=== PATIENT | female | born 1945 | race Caucasian/White ===

== ENCOUNTER → 2017-04-06 | Day surgery (SDC) | payer OTHER ==
[2017-03-05 13:21] VITALS: Ht 154.9 cm; Wt 84.1 kg
[~2017-04-06] VITALS: Ht 154.9 cm; Wt 84.1 kg
[~2017-04-06] MED LIST: 500ML BSSPLUS 0.5ML EPI1:1000 IRRIG ONE; ACETAMINOPHEN 325 MG TAB PO PRN; ATROPINE SULFATE 0.1 MG/ML 5ML SYR IV PRN; B-COTAB18 PO; BSS FLUSH ONE; BUPIVACAINE HCL 0.75% 10 ML AMP/VIAL ONE; CEFAZOLIN SOD 1 GM VIAL ONE; CRAN1CAP2 PO; DEXAMETHASONE SOD INJ 4 MG/ML VIAL ONE; EpHEDrine SULFATE INJ 50 MG/ML AMP IV PRN; EpINEphrine INJ 1MG/ML AMP 1 MG/ML AMP ONE; HYALURONIDASE HUMAN 150 UNIT/ML INJ ONE; INDOCYANINE GREEN 25 MG/10 ML ONE; LACTATED RINGER'S 1000ML 500 ML IV SCH; LIDOCAINE HCL 2% 2 ML VIAL (20MG/ML) ONE; MIDAZOLAM HCL 1 MG/ML 2ML VIAL ONE; NAPR1TAB9 PO; NEOMYCIN/POLYMYX/DEXAMETH OP OINT PER APP CHARGE ONE; OCUCOAT 1 ML SOLN IO ONE; POVIDONE-IODINE OP SOLN (SURGERY CNTR CHARGING ONLY) ONE; PRLSR20 PO; PRM625 PV; PROPARACAINE 0.5% OP SOLN PER DROP CHARGE OPR SCH; PROPOFOL IV EMULSION 10 MG/ML 20 ML VIAL IV ONE; TIMOLOL MALEATE 0.5% OP SOLN PER DROP CHARGE ONE
[2017-04-06] MEDS: PHENYLEPHRINE HCL 2.5% OP SOLN PER DROP CHARGE OPR SCH ×2 (08:37→08:48)
[2017-04-06] MEDS: TROPICAMIDE 1% OP SOLN PER DROP CHARGE OPR SCH ×2 (08:38→08:49)
--- NOTE | 2017-04-06 09:28 | History & Physical Bridge - SC ---
H&P Re-Evaluation Bridge Note: Pt has epiretinal membrane right eye and is here for vitrectomy right eye . I have examined the patient, reviewed the History & Physical and in the interval since the performance of the History & Physical I have noted the following changes of clinical significance: No changes noted
--- NOTE | 2017-04-06 10:28 | [facility] Operative Report ---
Operative Report Date of Service Apr 06, 2017. Operative Report PREOPERATIVE DIAGNOSIS: Epiretinal membrane, right eye. ICD10: H35.371 POSTOPERATIVE DIAGNOSIS: same. PROCEDURE: 1. Pars plana vitrectomy, 23 gauge. 2. Membrane peeling of the internal limiting membrane and overlying epiretinal membrane. All to the right eye. CPT CODE: 88085 SURGEON: Chalino Argueta D.O. COMPLICATIONS: None. ESTIMATED BLOOD LOSS: None. SPECIMENS: None. ANESTHESIA: Retrobulbar block and MAC. INDICATIONS FOR PROCEDURE: The patient has an epiretinal membrane that is visually significant. Vitrectomy surgery is indicated to decrease risk of vision loss and potentially improve vision. CONSENT: The risks, benefits and alternatives were discussed with the patient including but not limited to decreased visual acuity, failure to achieve desired results, loss of the eye, infection, pain, glaucoma, lens changes, retinal tears, retinal detachment, the need for more procedures, drooping of the eyelid, blindness, and double vision. The patient is aware of risks and consents to the surgery. Consent is signed and on the chart. OPERATION AND FINDINGS: The patient was brought to the operating room where the patient was identified by name, date, and medical record number. The surgical site was confirmed with the informed written consent. The patient was sedated by the anesthesiology team after which a 50:50 mixture of 2% lidocaine and 0.75% bupivacaine with hyaluronidase was administered in a standard retrobulbar fashion. A total of 4 ml was administered without difficulty. The patient was then prepped and draped in the usual sterile manner for retinal surgery. A wire lid speculum was placed and an Allen 23-gauge trocar cannula system was employed. The inferior temporal trocar cannula was first placed in an angled fashion 3.75mm posterior to the surgical limbus and the infusion cannula was inserted into this cannula after which the intravitreal position was verified prior to turning the infusion on. Two more trocar cannulas were then inserted in an angled fashion, one in the superior temporal, and one in the superior nasal quadrant both 3.75mm posterior to the surgical limbus. A light pipe and vitrector were then introduced into the eye and the BIOM wide angle viewing system was brought into place. Standard core vitrectomy was performed the vitreous was insured to be totally detached from the posterior pole with the aid of the vitrector. Next 0.05ml of indocyanine green was placed over the macular surface to stain the internal limiting membrane. This was washed from the eye after 10 seconds. At this point a flat contact lens was placed on the surface of the eye and a flex scraper and ILM forceps were used to gently peel the internal limiting membrane and overlying epiretinal membrane off of the macular surface without difficulty. At this point scleral depression was performed for 360 degrees and no retinal tears or detachments were noted. The trocar cannulas were then removed and found to be water tight. The intraocular pressure was found to be within normal limits by palpation and subconjunctival injections of Kefzol and dexamethasone were administered inferiorly and superiorly. The wire lid speculum was removed. Maxitrol was applied to the surface of the eye. A light patch and shield were taped over the surface of the eye and the patient left the Operating Room in stable condition having tolerated the procedure well. DISPOSITION: The patient has an appointment the following morning in the Ophthalmology Clinic. The patient is to call immediately if there are any problems overnight. I attest to the content of the Intraoperative Record and any orders documented therein. Any exceptions are noted below.
--- NOTE | 2017-04-06 10:29 | Discharge Instructions-SurgCtr ---
Discharge Instructions Date of Service Apr 06, 2017. Visit Reason for Visit: Right Eye Epiretinal Membrane Discharge Discharge Diagnosis / Problem: same Discharge Goals Goal(s): Improve function Medications Stopped Medications Name(s): dorothy stopped for 3 days Activity Recommendations Activity Limitations: per Instructions/Follow-up section Anesthesia . Post Anesthesia Instructions: If you have had General Anesthesia or IV Sedation: * Do not drive today. * Resume driving when surgeon permits. * Do not make important decisions or sign legal documents today. * Call surgeon for: 1. Temperature elevations greater than 101 degrees F. 2. Uncontrollable pain. 3. Excessive bleeding. 4. Persistent nausea and vomiting. 5. Medication intolerance (nausea, vomiting or rash). * For nausea and vomiting use only clear liquids such as: tea, soda, bouillon until nausea subsides, then gradually increase diet as tolerated. * If you have any concerns or questions, call your surgeon's office. If physician is unavailable and it is an emergency, call 911 or go to the nearest emergency room. . Instructions / Follow-Up Instructions / Follow-Up * May take Tylenol if needed for discomfort. * Do NOT remove eye shield. * NO straining, heavy lifting (>15 pounds) or bending below waist. * Avoid getting water or soap directly into operative eye. * Do NOT rub eye. If you experience increasing eye pain not relieved by medication, please contact us immediately at [phone]. If you are unable to reach someone at the above number, call [phone] and ask to speak with the EYE DOCTOR AGILE PROJECT MANAGER. Inform them that you are a Dr. Argueta patient who had recent surgery. Diet Recommendations Home Diet: resume previous diet Procedures Procedures Performed: Right Eye Vitrectomy 23 Gauge, Epiretinal Membrane Pending Studies Studies pending at discharge: no Medical Emergencies . Who to Call and When: Medical Emergencies: If at any time you feel your situation is an emergency, please call 911 immediately. . Non-Emergent Contact Non-Emergency issues call your: [place] [employer] . . "Provider Documentation" section prepared by Chalino Argueta. .
--- NOTE | 2017-04-06 10:58 | Anesthesia Progress Nt - [facility] ---
Anesthesia Post Op Note Date & Time Apr 06, 2017 at 10:58 Vital Signs Pain Intensity: 4 Vital Signs Past 12 Hours Date Time Temp Pulse Resp B/P (MAP) Pulse Ox O2 Delivery O2 Flow Rate FiO2 04/06/17 10:49 36.6 67 16 148/67 (94) 96 Room Air 04/06/17 08:25 36.7 71 16 143/84 (103) 97 Room Air Notes Mental Status: alert / awake / arousable, participated in evaluation Pt Amnestic to Procedure: Yes Nausea / Vomiting: adequately controlled Pain: adequately controlled Airway Patency, RR, SpO2: stable & adequate BP & HR: stable & adequate Hydration State: stable & adequate Anesthetic Complications: no major complications apparent
[2017-04-06 11:01] VITALS: BP 134/74; PULSE 73; TEMP 36.6; O2SAT 98
== END | disposition home or self-care (01) ==
LOC: X.SURG 08:07
PROVIDERS: ATTEND Ophthalmology
DX: H35.371 Puckering of macula, right eye (principal); E66.9 Obesity, unspecified; Z68.35 Body mass index [BMI] 35.0-35.9, adult

== ENCOUNTER → 2017-07-14 | Outpatient (CLI) | payer OTHER ==
[~2017-07-14] MED LIST changes: -500ML BSSPLUS 0.5ML EPI1:1000 IRRIG ONE; -ACETAMINOPHEN 325 MG TAB PO PRN; -ATROPINE SULFATE 0.1 MG/ML 5ML SYR IV PRN; -BSS FLUSH ONE; -BUPIVACAINE HCL 0.75% 10 ML AMP/VIAL ONE; -CEFAZOLIN SOD 1 GM VIAL ONE; -DEXAMETHASONE SOD INJ 4 MG/ML VIAL ONE; -EpHEDrine SULFATE INJ 50 MG/ML AMP IV PRN; -EpINEphrine INJ 1MG/ML AMP 1 MG/ML AMP ONE; -HYALURONIDASE HUMAN 150 UNIT/ML INJ ONE; -INDOCYANINE GREEN 25 MG/10 ML ONE; -LACTATED RINGER'S 1000ML 500 ML IV SCH; -LIDOCAINE HCL 2% 2 ML VIAL (20MG/ML) ONE; -MIDAZOLAM HCL 1 MG/ML 2ML VIAL ONE; -NEOMYCIN/POLYMYX/DEXAMETH OP OINT PER APP CHARGE ONE; -OCUCOAT 1 ML SOLN IO ONE; -POVIDONE-IODINE OP SOLN (SURGERY CNTR CHARGING ONLY) ONE; -PROPARACAINE 0.5% OP SOLN PER DROP CHARGE OPR SCH; -PROPOFOL IV EMULSION 10 MG/ML 20 ML VIAL IV ONE; -TIMOLOL MALEATE 0.5% OP SOLN PER DROP CHARGE ONE
--- NOTE | 2017-07-16 09:22 | MAMMOGRAPHY REPORT ---
BILATERAL DIGITAL SCREENING MAMMOGRAM TOMOSYNTHESIS WITH CAD: 07/14/2017 CLINICAL HISTORY: Routine screening. Patient has no complaints. TECHNIQUE: Breast tomosynthesis in addition to standard 2D mammography was performed. Current study was also evaluated with a Computer Aided Detection (CAD) system. COMPARISON: Comparison is made to exams dated: 06/05/2016 mammogram, 05/28/2015 mammogram, 05/25/2014 mammogram, 05/02/2013 mammogram, 04/05/2012 mammogram, and 04/02/2011 mammogram - [facility]. BREAST COMPOSITION: There are scattered areas of fibroglandular density in both breasts. FINDINGS: The exam is suboptimal due to inability of the patient to allow adequate positioning for th e exam, particularly MLO views. Within this limitation, there is stable asymmetry in the lateral pos terior left breast and medial right breast. No new suspicious mass, architectural distortion or clus ter of microcalcifications is seen. IMPRESSION: ACR BI-RADS CATEGORY 1: NEGATIVE There is no mammographic evidence of malignancy, within the limitations of the exam. A 1 year screeni ng mammogram is recommended. The patient will receive written notification of the results. Approximately 10% of breast cancers are not detected with mammography. A negative mammographic report should not delay biopsy if a clinically suggestive mass is present. Maren Keller M.D. ay/:07/14/2017 16:38:12 Mail Room Clerk: Deepika SALINAS)(Zaira), [facility] letter sent: Normal 1/2 BI-RADS Code: ACR BI-RADS Category 1: Negative
== END | disposition home or self-care (01) ==
LOC: C.MAMM 13:57
PROVIDERS: ATTEND Obstetrics & Gynecology
DX: Z12.31 Encounter for screening mammogram for malignant neoplasm of breast (principal)

== ENCOUNTER 2023-02-20 21:52 | Observation (INO) ==
[2023-02-20 22:46] LABS: Basophils # (auto) 0.03 K/uL (0-0.2); Basophils % (auto) 0.4 %; Eosinophils # (auto) 0.08 K/uL (0-0.50); Eosinophils % (auto) 0.9 %; Hemoglobin 11.5 g/dl (12.0-16.0); Immature Granulocytes # (auto) 0.01 K/uL (0.01-0.20); Immature Granulocytes % (auto) 0.1 %; Lymphocytes # (auto) 1.15 K/uL (1.2-3.4); Lymphocytes % (auto) 13.5 %; Mean Corpuscular Hemoglobin 31.1 pg (25.0-34.0); Mean Corpuscular Hgb Conc 32.9 g/dL (32.0-36.0); Mean Corpuscular Volume 94.6 fL (80.0-100.0); Mean Platelet Volume 9.5 fL (9.4-12.4); Monocytes # (auto) 0.51 K/uL (0.11-0.59); Neutrophils # (auto) 6.74 K/uL (1.40-6.50); Neutrophils % (auto) 79.1 %; Platelet Count 218 K/uL (130-400); RDW Coefficient of Variation 12.7 % (11.5-14.5); RDW Standard Deviation 44.4 fL (36.4-46.3); White Blood Count 8.52 K/ul (4.8-10.8)
[2023-02-20 22:50] LABS: Appearance Urine Cloudy (Clear); Bacteria Urine Automated 1+ (Negative); Bilirubin Urine Negative (Negative); Blood Urine Negative (Negative); Color Urine Dark Yellow; Epithelial Cell Urine Auto >30 /lpf (0-5); Glucose Urine UA Negative (Negative); Ketones Urine Trace (Negative); Leukocyte Esterase Urine Negative (Negative); Nitrite Urine Negative (Negative); Protein Urine Negative (Negative); Specific Gravity Urine 1.032 (1.000-1.030); Urobilinogen Urine Negative (Negative)
[2023-02-20 23:13] LABS: Albumin Level 4.1 gm/dl (3.4-5.0); Bilirubin,Total 0.9 mg/dl (0.2-1.0); Potassium 4.1 mmol/L (3.5-5.1)
[2023-02-20 23:20] LABS: Albumin Globulin Ratio 1.4 (0.9-2); BUN Creatinine Ratio 54.9 (10-20); Creatinine Clr Calc Pharmacy 91.2 ml/min; Est GFR (African American) 108.3 ml/min; Est GFR (Non-African American) 93.4 ml/min; Total Protein 7.1 gm/dl (6.0-8.3)
[2023-02-20 23:22] LABS: Troponin I High Sensitivity 4.1 pg/ml (0-14)
[2023-02-21] MEDS ORDERED: SODIUM CHLORIDE 0.9% 1000ML 500 ML IV ONE (00:40)
--- NOTE | 2023-02-21 00:40 | Emergency Department Note ---
Impression & Plan Acute cholecystitis, Abdominal pain, SOB (shortness of breath) ED Provider Note INFORMANT: Patient ED PROVIDER(S): Jesus Manuel De Guzman MD CHIEF COMPLAINT: Abdominal pain PLAN: Disposition: Admitted Condition: Good Outpatient prescription management: none Referral: None MEDICAL DECISION MAKING: Patient presented because of abdominal pain. At the peak of the pain she was short of breath. She had an unremarkable ECG. Patient's abdominal examination was concerning due to right upper quadrant pain. Patient still has her gallbladder. She was ordered hydration and Zofran. Her nausea resolved before the Zofran and patient declined. She declined analgesia. The patient underwent CT imaging and on my interpretation there was concerns for cholecystitis. I did perform a limited bedside ultrasound and this did reveal some wall thickening concerns. I put her in for formal ultrasound. There was a delay in receiving the stat rad radiology reading and I did satnam the study as urgent. Patient was given IV Mefoxin. The CT report did come back consistent with acute chol ecystitis. I did discuss the need for ultrasound with the service desk technician. Patient will need further management in the hospital. Given her age patient will be evaluated for admission by internal medicine with surgical consultation. Consultation was made with Dr. Austen Damon of the [facility] service. Patient was evaluated in the ER for further management. Discussed with coating manager After review of the information above and other included data, I feel the patien t requires admission. Triage Nursing notes reviewed and agree them. Vital Signs: reviewed and remarkable for no significant abnormalities Prior /Outside records reviewed: none Differential diagnosis: Etiologies such as gastroenteritis, food borne illness, infections, a ppendicitis, diverticulitis, inflammatory bowel disease, GI bleed, biliary pathology, as well as others were entertained. Diagnostics, as interpreted by me: ECG: Twelve-lead ECG reveals a normal sinus rhythm at 65 bpm. Poor R wave progression. No ST elevation or depression. No TWI. Cardiac Monitoring: Cardiac monitoring ordered by me: The patient was placed on continuous cardiac monitoring and observed. It revealed a normal sinus rhythm at 70 beats per minute without ectopy or evidence of dysrhythmia. Medical decision rules: none Imaging studies: CT scan as noted above. Consistent with acute cholecystitis. HPI: The patient is a 77 year old female who presents to the Emergency Room with complaints of abdominal pain. This started this afternoon and is persisting. The patient also notes the following associated symptoms, nausea, vomiting, SOB. The patient has taken no medication for relieving factors. Current pain is rated as 8/10. Pt notes right abd pain a few nights ago. Pt denies LOC, headache, fevers, chills, diaphoresis, visual changes, neck pain, chest pain, breathing difficulties, back pain, melena, hematochezia, urinary symptoms, numbness, weakness, lymphadenopathy, rash, or other complaints. PAST MEDICAL HISTORY: See Below, Dm PAST SURGICAL HISTORY: See Below, appy SOCIAL HISTORY: See Below, HOME MEDICATIONS: See Below ALLERGIES: See Below VITALS: See Below PHYSICAL EXAMINATION: GENERAL: Awake, alert, uncomfortable-appearing, in no distress HENT: Normocephalic, atraumatic. Oropharynx unremarkable. EYES: Normal conjunctiva. Sclera non-icteric. NECK: Inspection normal. Non-tender. Supple. No nuchal rigidity. FROM. No masses. RESPIRATORY: Clear to auscultation. No wheezes. No rales. Normal respiratory effort. CARDIAC: Normal rate. Normal rhythm. No murmurs. No rubs. Extremities warm and well perfused. Pulses equal. No JVD. GI: Soft, non-distended. RUQ tenderness to palpation. No rebound or guarding. No masses. RECTAL: Deferred. MUSCULOSKELETAL: Atraumatic. Chest examination reveals no tenderness. The back is symmetrical on inspection without obvious abnormality. There is no CVA tenderness to palpation. No joint edema. LOWER EXTREMITIES: Calves are equal size bilaterally and non-tender. No edema. No discoloration. NEURO: Normal sensorium. No sensory or motor deficits noted. SKIN: No rash or jaundice noted. Past Med/Surg History Medical History (Updated 02/21/23 @ 06:03 by Jesus Manuel De Guzman MD) Basal cell carcinoma Dermatofibroma Encounter for well woman exam with routine gynecological exam H/O bone density study 2013 H/O uterine leiomyoma Microscopic hematuria Prolapse of vaginal nazario Uterine prolapse Surgical History (Updated 03/27/19 @ 13:11 by Deborah Rios) H/O colonoscopy 2008-repeat in ten years H/O wisdom tooth extraction History of appendectomy History of cataract surgery History of dilation and curettage History of tubal ligation Family History (Updated 03/27/19 @ 13:13 by Deborah Rios) Mother Aortic aneurysm Father Aortic aneurysm Lung cancer Prostate cancer Bladder cancer Brother Aortic aneurysm Lung cancer Denies family history of Ovarian cancer Breast cancer Colorectal cancer Social History (Updated 12/14/19 @ 09:55 by Bridgett Johns) Smoking Status: Never smoker Do You Dip or Chew Tobacco: No; Hx Alcohol Use: No Hx Substance Use: No Preferred Language: Vietnamese Feels Safe at Home: Yes Dental Care, Regularly: Yes Allergies Allergies Allergy/AdvReac Type Severity Reaction Status Date / Time No Known Drug Allergies Allergy Verified 10/15/22 13:37 Home Meds Home Medications Medication Instructions Recorded Confirmed atorvastatin 80 mg tablet PO 03/27/19 10/15/22 clotrimazole-betamethasone 1 1 appln topical .Apply to rash in 03/27/19 10/15/22 %-0.05 % topical cream fol #1 g fluocinonide 0.05 % topical 1 appln topical .APPLY SPARINGLY 03/27/19 10/15/22 ointment TO A #1 g miconazole nitrate 2 % topical topical .aplly to inguinal fo #1 g 03/27/19 10/15/22 powder naproxen sodium 550 mg tablet PO 03/27/19 10/15/22 omeprazole 20 mg capsule,delayed PO 03/27/19 10/15/22 release trazodone 50 mg tablet 50 mg PO DAILY 03/21/20 10/15/22 lisinopril 20 mg tablet 20 mg PO DAILY 07/09/20 10/15/22 oxybutynin chloride 5 mg tablet 5 mg PO DAILY 10/16/20 10/15/22 escitalopram oxalate 10 mg tablet 10 mg PO DAILY 04/30/21 10/15/22 (Lexapro) Previous Rx's Medication Instructions Recorded conjugated estrogens 0.625 mg/gram 0.625 mg vaginal 2XWK #30 grams 10/15/22 vaginal cream Results & Data (ED) Vital Signs Vital Signs - 24 hr 02/20/23 21:54 02/21/23 01:42 02/21/23 03:00 Temperature 36.4 C L Temperature Source Temporal Artery Scan Pulse Rate 77 Pulse Rate [Finger] 66 Respiratory Rate 16 18 Blood Pressure 166/77 H Blood Pressure [Right Arm] 144/66 H Blood Pressure Mean 106 Blood Pressure Mean [Right Arm] 92 Blood Pressure Position Sitting Pulse Oximetry 98 100 Oxygen Delivery Method Room Air Room Air Room Air Sepsis Recent Fever Within 48 Hours No Sepsis New/Unexplained Change in Mental Status No Sepsis Action Taken by Nursing No Action Required 02/21/23 00:13 02/21/23 04:15 02/21/23 04:30 Temperature Temperature Source Pulse Rate 62 60 Pulse Rate [Finger] 70 Respiratory Rate 18 Blood Pressure Blood Pressure [Right Arm] 123/61 Blood Pressure Mean Blood Pressure Mean [Right Arm] 81 Blood Pressure Position Pulse Oximetry 98 Oxygen Delivery Method Room Air Sepsis Recent Fever Within 48 Hours Sepsis New/Unexplained Change in Mental Status Sepsis Action Taken by Nursing Laboratory Data 02/20/23 22:20 02/20/23 22:20 Lab Results 02/20/23 02/20/23 02/20/23 Range/Units 22:20 22:20 22:20 WBC 8.52 (4.8-10.8) K/ul RBC 3.70 L (4.20-5.40) M/uL Hgb 11.5 L (12.0-16.0) g/dl Hct 35.0 L (37.0-47.0) % MCV 94.6 (80.0-100.0) fL MCH 31.1 (25.0-34.0) pg MCHC 32.9 (32.0-36.0) g/dL RDW Std Deviation 44.4 (36.4-46.3) fL RDW Coeff of Haroldo 12.7 (11.5-14.5) % Plt Count 218 (130-400) K/uL MPV 9.5 (9.4-12.4) fL Immature Gran % (Auto) 0.1 % Neut % (Auto) 79.1 % Lymph % (Auto) 13.5 % [place] % (Auto) 6.0 % Eos % (Auto) 0.9 % Baso % (Auto) 0.4 % Neut # (Auto) 6.74 H (1.40-6.50) K/uL Lymph # (Auto) 1.15 L (1.2-3.4) K/uL [place] # (Auto) 0.51 (0.11-0.59) K/uL Eos # (Auto) 0.08 (0-0.50) K/uL Baso # (Auto) 0.03 (0-0.2) K/uL Immature Gran # (Auto) 0.01 (0.01-0.20) K/uL Sodium 139 (136-145) mmol/L Potassium 4.1 (3.5-5.1) mmol/L Chloride 107 (98-107) mmol/L Carbon Dioxide 24 (21-32) mmol/L Anion Gap 8 (3-11) BUN 28 H (6-23) mg/dl Creatinine 0.51 L (0.6-1.2) mg/dl Est Cr Clr Drug Dosing 91.2 ml/min Est GFR ( Amer) 108.3 ml/min Est GFR (Non-Af Amer) 93.4 ml/min BUN/Creatinine Ratio 54.9 H (10-20) Glucose 137 H (70-99(Fasting)) mg/dl Calcium 9.0 (8.6-10.3) mg/dl Total Bilirubin 0.9 (0.2-1.0) mg/dl AST 76 H (13-39) U/L ALT 55 H (7-52) U/L Alkaline Phosphatase 108 H (34-104) U/L Troponin I High Sens 4.1 (0-14) pg/ml Total Protein 7.1 (6.0-8.3) gm/dl Albumin 4.1 (3.4-5.0) gm/dl Globulin 3.0 (2.5-4.0) gm/dl Albumin/Globulin Ratio 1.4 (0.9-2) Lipase 39 (11-82) U/L Urine Color Dark Yellow Urine Appearance Cloudy A (Clear) Urine pH 5.0 (4.5-7.5) Ur Specific [place] 1.032 H (1.000-1.030) Urine Protein Negative (Negative) Urine Glucose (UA) Negative (Negative) Urine Ketones Trace H (Negative) Urine Blood Negative (Negative) Urine Nitrite Negative (Negative) Urine Bilirubin Negative (Negative) Urine Urobilinogen Negative (Negative) Ur Leukocyte Esterase Negative (Negative) Urine WBC (Auto) 1-5 (0-5) /hpf Urine RBC (Auto) 5-10 H (0-4) /hpf U Hyaline Cast (Auto) 1-5 (0-5) /lpf U Epithel Cells (Auto) >30 H (0-5) /lpf Urine Bacteria (Auto) 1+ H (Negative) Administered Medications Sodium Chloride (Nss 1000ml) 1,000 mls @ 125 mls/hr IV .Q8H LEXI Stop: 03/23/23 00:44 Last Admin: 02/21/23 02:32 Dose: Not Given Documented By: ALB Discontinued Medications Sodium Chloride (Nss 1000ml) 500 mls @ 999 mls/hr IV .Q31M ONE Stop: 02/21/23 01:10 Last Admin: 02/21/23 02:32 Dose: Not Given Documented By: BARRY Cefoxitin Sodium (Mefoxin) 2,000 mg in 60 mls @ 100 mls/hr IV NOW STA Stop: 02/21/23 05:26 Last Admin: 02/21/23 04:59 Dose: 100 mls/hr Documented By: LEODAN Ondansetron HCl (Ondansetron Inj 2 Mg/Ml 2 Ml Vial) 4 mg IV NOW STA Stop: 02/21/23 00:42 Last Admin: 02/21/23 05:22 Dose: 4 mg Documented By: LEODAN Imaging Data Radiologist's Impression: Abdomen/Pelvis CT 02/21/23 00:40 Exam(s): CT ABDOMEN + PELVIS Without Contrast EXAM: CT Abdomen and Pelvis Without Intravenous Contrast CLINICAL HISTORY: Pain. TECHNIQUE: Axial computed tomography images of the abdomen and pelvis without intravenous contrast. CTDI is right 26.97 mGy and DLP is 1269.53 mGy-cm. Automated exposure control was utilized for the study. A dose lowering technique was utilized adhering to the principles of ALARA. COMPARISON: No relevant prior studies available. FINDINGS: Lung bases: Unremarkable. No mass. No consolidation. Mediastinum: There is a moderate hiatal hernia which contains a small amount of nonspecific fluid. ABDOMEN: Liver: Unremarkable. Gallbladder and bile ducts: Inflammatory stranding surrounding a distended gallbladder is concerning for acute cholecystitis. No ductal dilation. Pancreas: Unremarkable. No ductal dilation. Spleen: Unremarkable. No splenomegaly. Adrenals: Unremarkable. No mass. Kidneys and ureters: Unremarkable. No obstructing stones. No hydronephrosis. Stomach and bowel: Diverticulosis. No obstruction. No mucosal thickening. PELVIS: Appendix: No findings to suggest acute appendicitis. Bladder: Unremarkable. No stones. Reproductive: A pessary device is noted. Uterine fibroids are partially calcified. ABDOMEN and PELVIS: Intraperitoneal space: Unremarkable. No free air. No significant fluid collection. Bones/joints: There are degenerative changes of the spine. No acute fracture. There are degenerative changes of both hips. No dislocation. Soft tissues: Unremarkable. Vasculature: Minimal atherosclerosis. No abdominal aortic aneurysm. Lymph nodes: Unremarkable. No enlarged lymph nodes. IMPRESSION: 1. Inflammatory stranding surrounding a distended gallbladder is concerning for acute cholecystitis. 2. There is a moderate hiatal hernia which contains a small amount of nonspecific fluid. This is of unknown clinical significance. 3. Diverticulosis. Electronically signed by: Anne Garcia MD 02/21/23 04:43 AM Discharge Plan Visit Data Chief Complaint: Shortness of Breath/Dyspnea Stated Complaint: VOMITING,SOB ED Provider: Jesus Manuel De Guzman Discharge Problem: Acute cholecystitis, Abdominal pain, SOB (shortness of breath) Patient Disposition: Admitted As Inpatient Forms Stand Alone Forms: [facility], Virtual Emergency Department, Important Visit Information Prescriptions Prescriptions: No Action naproxen sodium 550 mg tablet PO clotrimazole-betamethasone 1-0.05 % cream 1 appln topical .Apply to rash in fol Qty: 1 fluocinonide 0.05 % ointment 1 appln topical .APPLY SPARINGLY TO A Qty: 1 atorvastatin 80 mg tablet PO omeprazole 20 mg capsule,delayed release(DR/EC) PO Zeasorb AF 2 % powder topical .aplly to inguinal fo Qty: 1 oxybutynin chloride 5 mg tablet 5 mg PO DAILY trazodone 50 mg tablet 50 mg PO DAILY escitalopram oxalate [Lexapro] 10 mg tablet 10 mg PO DAILY lisinopril 20 mg tablet 20 mg PO DAILY conjugated estrogens 0.625 mg/gram cream 0.625 mg PV 2XWK Qty: 30 3RF Referrals Referrals: Teresita Vigil [Primary Care Provider] -
[2023-02-21] MEDS: ONDANSETRON INJ 2 MG/ML 2 ML VIAL IV STA ×2 (02:32→05:22)
[2023-02-21] MEDS: SODIUM CHLORIDE 0.9% 1000ML 1,000 ML IV SCH ×2 (02:32→09:00)
--- NOTE | 2023-02-21 04:44 | CT Scan Report ---
Exam(s): CT ABDOMEN + PELVIS Without Contrast EXAM: CT Abdomen and Pelvis Without Intravenous Contrast CLINICAL HISTORY: Pain. TECHNIQUE: Axial computed tomography images of the abdomen and pelvis without intravenous contrast. CTDI is right 26.97 mGy and DLP is 1269.53 mGy-cm. Automated exposure control was utilized for the study. A dose lowering technique was utilized adhering to the principles of ALARA. COMPARISON: No relevant prior studies available. FINDINGS: Lung bases: Unremarkable. No mass. No consolidation. Mediastinum: There is a moderate hiatal hernia which contains a small amount of nonspecific fluid. ABDOMEN: Liver: Unremarkable. Gallbladder and bile ducts: Inflammatory stranding surrounding a distended gallbladder is concerning for acute cholecystitis. No ductal dilation. Pancreas: Unremarkable. No ductal dilation. Spleen: Unremarkable. No splenomegaly. Adrenals: Unremarkable. No mass. Kidneys and ureters: Unremarkable. No obstructing stones. No hydronephrosis. Stomach and bowel: Diverticulosis. No obstruction. No mucosal thickening. PELVIS: Appendix: No findings to suggest acute appendicitis. Bladder: Unremarkable. No stones. Reproductive: A pessary device is noted. Uterine fibroids are partially calcified. ABDOMEN and PELVIS: Intraperitoneal space: Unremarkable. No free air. No significant fluid collection. Bones/joints: There are degenerative changes of the spine. No acute fracture. There are degenerative changes of both hips. No dislocation. Soft tissues: Unremarkable. Vasculature: Minimal atherosclerosis. No abdominal aortic aneurysm. Lymph nodes: Unremarkable. No enlarged lymph nodes. IMPRESSION: 1. Inflammatory stranding surrounding a distended gallbladder is concerning for acute cholecystitis. 2. There is a moderate hiatal hernia which contains a small amount of nonspecific fluid. This is of unknown clinical significance. 3. Diverticulosis. Electronically signed by: Anne Garcia MD 02/21/23 04:43 AM
[2023-02-21] MEDS ORDERED: cefOXitin 2,000 MG/60 ML BAG IV STA (04:51)
[2023-02-21] MEDS ORDERED: cefTRIAXone SODIUM 2,000 MG in DEXTROSE 5% 50 ML IV SCH (06:00)
--- NOTE | 2023-02-21 06:08 | History & Physical Report ---
Date of Service February 21, 2023 Assessment & Plan (1) Acute cholecystitis: Plan: Patient is a 77-year-old female presents to the hospital for evaluation of abdominal pain. Work-up found to be positive for acute cholecystitis. Patient to be admitted to the hospital for surgical consultation and treatment. -Admit to [facility] -CT of abdomen pelvis showing evidence of acute cholecystitis, dedicated ultrasound pending -Patient given cefoxitin in the ED but this was discontinued and switched to Rocephin for adequate antibiotic coverage for acute cholecystitis -Consult general surgery, appreciate recommendations, patient likely will require cholecystectomy -Strict n.p.o. with the likelihood of surgical procedure, LR at 150 cc/h -Pain management with IV Tylenol for mild pain, 1 mg of morphine for moderate pain, 2 mg of morphine for severe pain -Zofran as needed for nausea -Morning CBC, CMP (2) Hypertension: Plan: - Patient takes lisinopril at home, confirmed, continue when not n.p.o. (3) Hyperlipidemia: Plan: - Continue atorvastatin when not n.p.o. Plan Disposition: Admit to [facility] for surgical consultation and treatment DVT prophylaxis: Chemoprophylaxis contraindicated in the setting of likely surgical procedure Diet: N.p.o. with LR at 150 cc/h CODE STATUS: Full code History of Present Illness Chief Complaint: Abdominal Pain Primary Care Provider: Teresita Vigil Patient is a 77-year-old female presents to the hospital for evaluation of abdominal pain. Patient reports that began late afternoon on 02/20/2023. Patient and her state that they were at the [facility] and had food that was brought from home at approximately 1 PM and a few hours later the patient was experiencing right upper quadrant pain with associated nausea, vomiting, and shortness of breath. For this reason, she was brought to the emergency department by her . She had noted similar symptoms earlier in the week but it was short-lived and seem to have resolved within 1/2-hour or so. Pain was initially an 8 out of 10 in the right upper quadrant but seems to have improved since being in the emergency department. She is having dry heaving currently without active vomiting. No urinary symptoms. Denies hematemesis, melena, hematochezia. Her last bowel movement was in the afternoon on 8/18 which did not improve her symptoms. Patient notes that she did have her appendix removed many years ago. Otherwise no other complaints at this time. ED course: Patient brought back and evaluated by one of the providers. Otherwise no other complaints at this time. Lab work is significant for a mild anemia with a hemoglobin of 11.5, BUN of 28, mildly elevated AST and ALT at 76 and 55 respectively, and a urinalysis not indicative of urinary tract infection. CT of the abdomen and pelvis shows inflammatory stranding surrounding and a distended gallbladder indicative of acute cholecystitis. Patient was given cefoxitin and Zofran in the ED. The hospitalist service was then consulted for admission and treatment. Allergies Allergy/AdvReac Type Severity Reaction Status Date / Time No Known Drug Allergies Allergy Verified 10/15/22 13:37 Home Medications Medication Instructions Recorded Confirmed Type naproxen sodium 550 mg tablet 550 mg PO DAILY PRN Pain 03/27/19 02/21/23 History omeprazole 20 mg capsule,delayed 20 mg PO DAILY 03/27/19 02/21/23 History release lisinopril 20 mg tablet 20 mg PO DAILY 07/09/20 02/21/23 History escitalopram oxalate 10 mg tablet 10 mg PO DAILY 04/30/21 02/21/23 History (Lexapro) conjugated estrogens 0.625 mg/gram 0.625 mg vaginal 2XWK #30 grams 10/15/22 02/21/23 Rx vaginal cream atorvastatin 40 mg tablet 40 mg PO DAILY 02/21/23 02/21/23 History trazodone 50 mg tablet 25 mg PO HS 02/21/23 02/21/23 History Past Med/Surg History Medical History (Updated 02/21/23 @ 17:06 by Joana Kruse MD) Basal cell carcinoma Dermatofibroma Encounter for well woman exam with routine gynecological exam GERD (gastroesophageal reflux disease) H/O bone density study 2013 H/O uterine leiomyoma Major depressive disorder Microscopic hematuria Prolapse of vaginal nazario Uterine prolapse Surgical History H/O colonoscopy 2008-repeat in ten years H/O wisdom tooth extraction History of appendectomy History of cataract surgery History of dilation and curettage History of tubal ligation Family History Mother Aortic aneurysm Father Aortic aneurysm Lung cancer Prostate cancer Bladder cancer Brother Aortic aneurysm Lung cancer Denies family history of Ovarian cancer Breast cancer Colorectal cancer Social History Smoking Status: Never smoker Do You Dip or Chew Tobacco: No; Hx Alcohol Use: No Hx Substance Use: No Preferred Language: Swedish Feed Preparation Operator Required: No Beliefs That Will Affect Care: None Current Living Situation: Spouse Other Information That Helps Us Care for You: No Feels Safe at Home: Yes Safety Concerns: Feels Safe At This Time Dental Care, Regularly: Yes Assistive Devices: Denture - Upper, Denture - Lower, Glasses and Hearing Aid - Bilateral Review of Systems Review of Systems: All systems reviewed & are unremarkable except as noted in HPI & below Physical Exam Constitutional: WD/WN, vitals as above Eyes: + anicteric sclerae Neck: trachea midline, no thyromegaly Respiratory: normal respiratory effort, lungs clear to auscultation Cardiovascular: RRR, no murmur, no edema Gastrointestinal (Abdomen): Inspection/Auscultation: abdomen normal to inspection Percussion/Palpation: + abdomen tender and abdomen soft Positive Gomez sign Musculoskeletal: Head/Neck/Chest: normocephalic and head atraumatic Skin: no rashes, warm and dry Neurologic: moves all extremities Psychiatric: A+Ox3, euthymic affect Results & Data Results & Data Vital Signs (Past 12 Hours) Vital Signs Temp Pulse Pulse Resp BP BP Pulse Ox 02/21/23 04:30 70 18 123/61 98 02/21/23 04:15 60 02/21/23 00:13 62 02/21/23 03:00 66 18 144/66 H 100 02/21/23 01:42 02/20/23 21:54 36.4 C L 77 16 166/77 H 98 O2 Del Method 02/21/23 04:30 Room Air 02/21/23 04:15 02/21/23 00:13 02/21/23 03:00 Room Air 02/21/23 01:42 Room Air 02/20/23 21:54 Room Air Supervising Physician Co-Signing Physician Notes Attending addendum: I have physically seen this patient, have supervised the medical residents activities, and agree with the H&P unless as otherwise noted. Assessment and Plan: Acute cholecystitis- CT abdomen pelvis suggestive of acute cholecystitis. Ultrasound right upper quadrant for confirmation Given cefoxitin in the ED Ceftriaxone 2 g IV daily N.p.o. LR at 150 mils per hour Acetaminophen 1 g IV every 8 hours as needed for mild pain or fever Morphine for moderate pain and severe pain as noted Zofran 4 mg IV every 6 hours as needed Hypertension- Oral medications on hold Hydralazine 10 mg IV every 4 hours as needed systolic blood pressure greater than 160
--- NOTE | 2023-02-21 07:15 | Ultrasound Report ---
ABDOMINAL ULTRASOUND, RIGHT UPPER QUADRANT HISTORY: Acute right upper quadrant abdominal pain elevated lfts, distended gallbladder, ? wall thic k. COMPARISON: CT of same day. FINDINGS: Limited exam secondary to patient body habitus. Pancreas: The pancreas demonstrates a normal echotexture. Liver: The liver measures up to 14 cm in length. No hepatic mass identified. The main portal vein daxa ears patent. Gallbladder: The gallbladder wall is thickened measuring up to 4-5 mm. Trace pericholecystic edema. N o shadowing cholelithiasis identified. The patient is diffusely tender throughout the upper abdomen. CBD: 0.4 cm. Right kidney: No hydronephrosis. 1.4 cm cyst of the superior pole right kidney. IMPRESSION: 1. Distended gallbladder with edematous wall thickening and mild pericholecystic edema. There is currie matthew no cholelithiasis identified. Findings could be correlated with nuclear medicine hepatobiliary sc an to exclude acute cholecystitis. 2. No biliary ductal dilation. ACT 112: Negative or not required by law. Electronically signed by: Mp Nuñez M.D. 02/21/2023 7:13 AM
[2023-02-21] MEDS ORDERED: MoRPHine SULFATE 2 MG/ML CARP IV PRN ×2 (09:06)
[2023-02-21] MEDS ORDERED: ACETAMINOPHEN 1,000 MG/100 ML VIAL IV PRN (09:06)
[2023-02-21] MEDS ORDERED: ONDANSETRON INJ 2 MG/ML 2 ML VIAL IV PRN ×2 (09:06→13:20)
[2023-02-21] MEDS ORDERED: traZODone HCL 50 MG TAB PO SCH ×3 (09:06→21:00)
[2023-02-21] MEDS ORDERED: ATORVASTATIN 40 MG TAB PO SCH (09:06)
[2023-02-21 10:01] LABS: Hematocrit (blood only) 33.6 % (37.0-47.0); Hemoglobin 11.4 g/dl (12.0-16.0); Mean Corpuscular Hgb Conc 33.9 g/dL (32.0-36.0); Mean Corpuscular Volume 91.3 fL (80.0-100.0); Mean Platelet Volume 9.5 fL (9.4-12.4); Platelet Count 204 K/uL (130-400); RDW Coefficient of Variation 12.9 % (11.5-14.5); RDW Standard Deviation 42.2 fL (36.4-46.3); Red Blood Count 3.68 M/uL (4.20-5.40); White Blood Count 9.55 K/ul (4.8-10.8)
[2023-02-21 10:16] LABS: Albumin Globulin Ratio 1.3 (0.9-2); Albumin Level 3.8 gm/dl (3.4-5.0); BUN Creatinine Ratio 48.8 (10-20); Bilirubin,Total 0.6 mg/dl (0.2-1.0); Calcium 8.8 mg/dl (8.6-10.3); Creatinine Clr Calc Pharmacy 113.4 ml/min; Est GFR (African American) 116.3 ml/min; Est GFR (Non-African American) 100.4 ml/min; Total Protein 6.8 gm/dl (6.0-8.3)
[2023-02-21] MEDS: LACTATED RINGER'S 1,000 ML IV SCH ×2 (10:56→16:01)
[2023-02-21] MEDS ORDERED: metroNIDAZOLE 500 MG/100 ML BAG IV SCH (11:00)
[2023-02-21] MEDS ORDERED: BUPIVACAINE/EPINEPHRINE 0.25% 1:200,000 30 ML VIAL ONE (11:13)
[2023-02-21] MEDS: lisinopril 20 MG TAB PO SCH (11:25)
[2023-02-21] MEDS: ESCITALOPRAM OXALATE 10 MG TAB PO SCH (11:25)
[2023-02-21] MEDS ORDERED: fentaNYL citrate PF 100 MCG/2 ML VIAL ONE ×2 (11:59→14:10)
[2023-02-21] MEDS ORDERED: LIDOCAINE 2% 2 ML VIAL/AMP(20MG/ML) INFIL ONE ×2 (12:03)
[2023-02-21] MEDS ORDERED: PROPOFOL IV EMULSION 10 MG/ML 20 ML VIAL IV ONE (12:03)
[2023-02-21] MEDS ORDERED: ROCURONIUM BROMIDE 10 MG/ML 5 ML VIAL IV ONE (12:03)
[2023-02-21] MEDS ORDERED: ONDANSETRON INJ 2 MG/ML 2 ML VIAL ONE (12:03)
[2023-02-21] MEDS ORDERED: DEXAMETHASONE SOD INJ 4 MG/ML VIAL ONE (12:03)
[2023-02-21] MEDS ORDERED: ePHEDrine sulfate 50 MG/ML AMP IV PRN (13:20)
[2023-02-21] MEDS ORDERED: HYDROmorphone INJ 2 MG/ML SYR/VIAL IV PRN (13:20)
[2023-02-21] MEDS ORDERED: ATROPINE SULFATE 0.1 MG/ML 10ML SYR IV PRN (13:20)
[2023-02-21] MEDS ORDERED: fentaNYL citrate PF 100 MCG/2 ML VIAL IV PRN (13:20)
--- NOTE | 2023-02-21 13:20 | Anesthesiology Consultation ---
Date of Service February 21, 2023 Assessment & Plan ASA ASA3 Proposed Anesthesia Anesthesia Type: General Risk / Benefits Reviewed With: PT / POA / Parent / Guardian, Accepts Plan and Informed Consent Obtained History Surgery Operation Date: 02/21/23 10:45 Proposed Procedures p Laparoscopic Cholecystectomy - Jose Flores DO Height/Weight Height: 5 ft 1 in Weight: 82.2 kg Allergies Allergy/AdvReac Type Severity Reaction Status Date / Time No Known Drug Allergies Allergy Verified 10/15/22 13:37 Medications Home Medications Medication Instructions Recorded Confirmed Last Taken naproxen sodium 550 mg tablet 550 mg PO DAILY PRN Pain 03/27/19 02/21/23 Unknown omeprazole 20 mg capsule,delayed 20 mg PO DAILY 03/27/19 02/21/23 Unknown release lisinopril 20 mg tablet 20 mg PO DAILY 07/09/20 02/21/23 Unknown escitalopram oxalate 10 mg tablet 10 mg PO DAILY 04/30/21 02/21/23 Unknown (Lexapro) conjugated estrogens 0.625 mg/gram 0.625 mg vaginal 2XWK #30 grams 10/15/22 02/21/23 Unknown vaginal cream atorvastatin 40 mg tablet 40 mg PO DAILY 02/21/23 02/21/23 Unknown trazodone 50 mg tablet 25 mg PO HS 02/21/23 02/21/23 Unknown Active Medications Generic Name Dose Route Start Last Admin Trade Name Freq PRN Reason Stop Dose Admin Atorvastatin Calcium 80 mg 02/21/23 09:06 02/21/23 11:24 Atorvastatin 40 Mg Tab PO 03/23/23 09:05 Not Given QAM LEXI Escitalopram Oxalate 10 mg 02/21/23 09:06 02/21/23 11:25 Escitalopram Oxalate 10 Mg Tab PO 03/23/23 09:05 Not Given DAILY LEXI Ceftriaxone Sodium 2,000 mg/ 70 mls @ 100 mls/hr 02/21/23 06:00 02/21/23 07:51 Dextrose IV 03/03/23 05:59 Infused Q24H LEXI Infusion Protocol Lactated Ringer's 1,000 mls @ 150 mls/hr 02/21/23 09:06 02/21/23 13:00 Lr IV 03/23/23 09:05 0 mls/hr .Q6H40M LEXI Infusion Lisinopril 20 mg 02/21/23 09:06 02/21/23 11:25 Lisinopril 20 Mg Tab PO 03/23/23 09:05 Not Given DAILY LEXI NPO Date Last Intake of Fluids: 02/20/23 Time Last Intake of Fluids: 17:00 Date Last Intake of Solids: 02/20/23 Time Last Intake of Solids: 13:00 Past Medical History Medical History Basal cell carcinoma Dermatofibroma Encounter for well woman exam with routine gynecological exam H/O bone density study 2013 H/O uterine leiomyoma Microscopic hematuria Prolapse of vaginal nazario Uterine prolapse Exercise / Class Metabolic Activity II 4-5 Yardwork/Stairs/Walk up hill Past Family History Family History Mother Aortic aneurysm Father Aortic aneurysm Lung cancer Prostate cancer Bladder cancer Brother Aortic aneurysm Lung cancer Denies family history of Ovarian cancer Breast cancer Colorectal cancer Past Surgical History Surgical History H/O colonoscopy 2008-repeat in ten years H/O wisdom tooth extraction History of appendectomy History of cataract surgery History of dilation and curettage History of tubal ligation Past Anesthesia History No Hx of Anesthesia Complications and No Family Hx of Anesthesia Complications History of PONV No Hx of PONV and No Hx of Motion Sickness Social History Smoking Status: Never smoker Do You Dip or Chew Tobacco: No Hx Alcohol Use: No Hx Substance Use: No Review of Systems denies fever/cough/ colds/ chest pain/ SOB/ SHELTON denies SHELTON Physical Exam Vital Signs Last Vital Signs Temp 37.2 C 02/21/23 10:45 Pulse 70 02/21/23 10:45 Resp 18 02/21/23 10:45 BP 145/72 H 02/21/23 10:45 Pulse Ox 97 02/21/23 10:45 O2 Del Method Room Air 02/21/23 10:45 ENMT Mouth: + dentures and + edentulous; no TMJ abnormality and no dentition abnormality Thyromental Distance: > or= 3.5 Finger Breadths Mallampati Class: II Neck neck extension not limited Respiratory normal respiratory effort; no respiratory distress Auscultation: lungs clear to auscultation bilaterally Cardiovascular Rate/Rhythm: regular rate and regular rhythm Neurologic moves all extremities Psychiatric Orientation: alert and oriented x 3 Testing Laboratory Results 02/21/23 09:42 02/21/23 09:42 Urine Color Dark Yellow 02/20/23 22:20 Urine Appearance Cloudy (Clear) A 02/20/23 22:20 Urine pH 5.0 (4.5-7.5) 02/20/23 22:20 Ur Specific [place] 1.032 (1.000-1.030) H 02/20/23 22:20 Urine Protein Negative (Negative) 02/20/23 22:20 Urine Glucose (UA) Negative (Negative) 02/20/23 22:20 Urine Ketones Trace (Negative) H 02/20/23 22:20 Urine Nitrite Negative (Negative) 02/20/23 22:20 Ur Leukocyte Esterase Negative (Negative) 02/20/23 22:20 Urine WBC (Auto) 1-5 /hpf (0-5) 02/20/23 22:20 Urine RBC (Auto) 5-10 /hpf (0-4) H 02/20/23 22:20 U Hyaline Cast (Auto) 1-5 /lpf (0-5) 02/20/23 22:20 U Epithel Cells (Auto) >30 /lpf (0-5) H 02/20/23 22:20 Urine Bacteria (Auto) 1+ (Negative) H 02/20/23 22:20
--- NOTE | 2023-02-21 13:26 | Surgery Consultation ---
Date of Consultation February 21, 2023 Assessment & Plan (1) Acute cholecystitis: Her CT images and results were personally viewed and interpreted by myself, she has a distended and inflamed gallbladder consistent with acute cholecystitis She been admitted to the hospitalist service and kept n.p.o. and started on IV antibiotics We will plan on a laparoscopic cholecystectomy, possible open, possible intraoperative cholangiogram Consent was obtained, risk discussed including bleeding, infection, bile leak, ductal injury History of Present Illness Reason for Consultation: Acute cholecystitis Attending Physician: Austen Damon MD History of Present Illness This is a 77-year-old female who came to the ER last night with a day long epigastric and right upper quadrant abdominal pain, sharp in nature with radiation to her back. No worsening or relieving factors. She states she was eating some food at the [employer] and then got her symptoms. She had some nausea without emesis. Denies any fevers or chills. Denies any jaundice or acholic stools. Her previous abdominal surgery is an appendectomy. Allergies Allergy/AdvReac Type Severity Reaction Status Date / Time No Known Drug Allergies Allergy Verified 10/15/22 13:37 Home Medications Medication Instructions Recorded Confirmed Type naproxen sodium 550 mg tablet 550 mg PO DAILY PRN Pain 03/27/19 02/21/23 History omeprazole 20 mg capsule,delayed 20 mg PO DAILY 03/27/19 02/21/23 History release lisinopril 20 mg tablet 20 mg PO DAILY 07/09/20 02/21/23 History escitalopram oxalate 10 mg tablet 10 mg PO DAILY 04/30/21 02/21/23 History (Lexapro) conjugated estrogens 0.625 mg/gram 0.625 mg vaginal 2XWK #30 grams 10/15/22 02/21/23 Rx vaginal cream atorvastatin 40 mg tablet 40 mg PO DAILY 02/21/23 02/21/23 History trazodone 50 mg tablet 25 mg PO HS 02/21/23 02/21/23 History Patient History Medical History Basal cell carcinoma Dermatofibroma Encounter for well woman exam with routine gynecological exam H/O bone density study 2013 H/O uterine leiomyoma Microscopic hematuria Prolapse of vaginal nazario Uterine prolapse Surgical History H/O colonoscopy 2008-repeat in ten years H/O wisdom tooth extraction History of appendectomy History of cataract surgery History of dilation and curettage History of tubal ligation Family History Mother Aortic aneurysm Father Aortic aneurysm Lung cancer Prostate cancer Bladder cancer Brother Aortic aneurysm Lung cancer Denies family history of Ovarian cancer Breast cancer Colorectal cancer Social History Smoking Status: Never smoker Do You Dip or Chew Tobacco: No; Hx Alcohol Use: No Hx Substance Use: No Preferred Language: Micronesian Marketing Pr Intern Required: No Beliefs That Will Affect Care: None Current Living Situation: Spouse Other Information That Helps Us Care for You: No Feels Safe at Home: Yes Safety Concerns: Feels Safe At This Time Dental Care, Regularly: Yes Assistive Devices: Denture - Upper, Denture - Lower, Glasses and Hearing Aid - Bilateral Review of Systems Constitutional: no fever and no chills Eyes: no blind spots and no worsening vision Ear, Nose, Mouth, Throat: + hearing loss; no ear pain and no dysphagia Respiratory: no cough and no dyspnea Cardiovascular: no chest pain and no dyspnea on exertion Gastrointestinal: + abdominal pain and + nausea; no vomiting, no change in stools and no constipation Genitourinary: no dysuria and no difficulty urinating Musculoskeletal: no back pain and no neck pain Integumentary: no acne, no lesions, no skin ulcer and no erythema Neurologic: no headache(s) and no memory loss Psychiatric: no behavioral changes and no depression Hematologic / Lymphatic: no easy bleeding and no easy bruising Physical Exam Constitutional: WD/WN, vitals as above Eyes: PERRL, conjunctivae normal, anicteric sclerae ENMT: external ear and nose normal, oropharynx normal Neck: trachea midline, no thyromegaly Respiratory: normal respiratory effort, lungs clear to auscultation Cardiovascular: RRR, no murmur, no edema Gastrointestinal (Abdomen): Inspection/Auscultation: abdomen normal to inspection; abdomen not distended Percussion/Palpation: + abdomen tender (Right upper quadrant), + guarding and abdomen soft; abdomen not rigid and no hernia Positive Gomez's Musculoskeletal: no cyanosis or clubbing, extremities motor strength 5/5 Skin: no rashes, warm and dry Neurologic: PERRL, EOMI, accommodation nl, no face palsy, no dysarthria Psychiatric: A+Ox3, euthymic affect Results & Data Vital Signs (Past 12 Hours) Vital Signs Temp Pulse Pulse Resp BP BP Pulse Ox 02/21/23 10:45 37.2 C 70 18 145/72 H 97 02/21/23 09:20 69 18 98 02/21/23 09:10 70 19 98 02/21/23 09:01 75 24 157/87 H 96 02/21/23 09:00 75 22 100 02/21/23 08:50 79 19 98 02/21/23 08:40 72 17 98 02/21/23 08:31 70 19 118/65 97 02/21/23 08:30 71 22 92 02/21/23 08:20 69 23 98 02/21/23 08:10 66 18 97 02/21/23 08:00 74 21 82 L 02/21/23 08:00 127/65 02/21/23 07:50 71 19 97 02/21/23 07:40 64 17 98 02/21/23 07:30 68 15 94 02/21/23 07:30 136/70 02/21/23 07:20 64 16 97 02/21/23 07:10 70 22 95 02/21/23 07:05 67 18 02/21/23 07:05 152/85 H 02/21/23 06:00 69 17 97 02/21/23 05:50 67 18 97 02/21/23 05:40 66 22 97 02/21/23 05:30 65 18 99 02/21/23 05:20 71 19 97 02/21/23 05:10 70 19 98 02/21/23 05:02 61 17 98 02/21/23 04:30 69 18 97 02/21/23 04:30 123/61 02/21/23 04:20 63 16 98 02/21/23 04:10 62 19 98 02/21/23 04:00 64 12 02/21/23 04:00 137/66 02/21/23 03:50 68 19 98 02/21/23 03:40 64 18 98 02/21/23 03:30 73 17 93 02/21/23 03:30 129/61 02/21/23 03:20 64 20 99 02/21/23 03:10 65 25 H 98 02/21/23 03:00 66 20 99 02/21/23 03:00 144/66 H 02/21/23 02:50 65 19 97 02/21/23 02:40 61 17 98 02/21/23 02:30 70 23 99 02/21/23 02:30 139/63 02/21/23 02:28 64 21 97 02/21/23 02:28 159/72 H 02/21/23 02:00 65 22 98 02/21/23 01:50 67 16 97 02/21/23 07:00 36.8 C 73 17 136/70 98 02/21/23 04:30 70 18 123/61 98 02/21/23 04:15 60 02/21/23 03:00 66 18 144/66 H 100 02/21/23 01:42 O2 Del Method 02/21/23 10:45 Room Air 02/21/23 09:20 02/21/23 09:10 02/21/23 09:01 02/21/23 09:00 02/21/23 08:50 02/21/23 08:40 02/21/23 08:31 02/21/23 08:30 02/21/23 08:20 02/21/23 08:10 02/21/23 08:00 02/21/23 08:00 02/21/23 07:50 02/21/23 07:40 02/21/23 07:30 02/21/23 07:30 02/21/23 07:20 02/21/23 07:10 02/21/23 07:05 02/21/23 07:05 02/21/23 06:00 02/21/23 05:50 02/21/23 05:40 02/21/23 05:30 02/21/23 05:20 02/21/23 05:10 02/21/23 05:02 02/21/23 04:30 02/21/23 04:30 02/21/23 04:20 02/21/23 04:10 02/21/23 04:00 02/21/23 04:00 02/21/23 03:50 02/21/23 03:40 02/21/23 03:30 02/21/23 03:30 02/21/23 03:20 02/21/23 03:10 02/21/23 03:00 02/21/23 03:00 02/21/23 02:50 02/21/23 02:40 02/21/23 02:30 02/21/23 02:30 02/21/23 02:28 02/21/23 02:28 02/21/23 02:00 02/21/23 01:50 02/21/23 07:00 Room Air 02/21/23 04:30 Room Air 02/21/23 04:15 02/21/23 03:00 Room Air 02/21/23 01:42 Room Air PG Care Time/CCT Total # of Minutes Spent Total Time Spent with Patient: Total time spent is greater than 50% in coordination of care (as documented) at patient's floor/unit and/or counseling patient: Coding Level of Care Code 35305 IN/OBS CONSULT LVL 5,80M Diagnoses Acute cholecystitis K81.0
[2023-02-21] MEDS ORDERED: ceFAZolin 330 MG/ML 1 GM VIAL IV ONE (13:45)
[2023-02-21] MEDS ORDERED: PHENYLEPHRINE 100MCG/ML 5ML SYR ONE (13:54)
[2023-02-21] MEDS ORDERED: ceFAZolin 330 MG/ML 1 GM VIAL ONE (13:54)
[2023-02-21] MEDS ORDERED: ePHEDrine sulfate 50 MG/ML SYR ONE (14:00)
[2023-02-21] MEDS ORDERED: SUGAMMADEX SODIUM 200 MG/2 ML VIAL IV ONE (14:12)
--- NOTE | 2023-02-21 14:45 | Post Operative Brief Note ---
PG Immediate Post Op with CF Date of Surgery February 21, 2023 Pre & Post Diagnosis Operation Date: 02/21/23 10:45 Pre-Op Diagnosis: Acute Cholecystitis Post-Op Diagnosis: Acute Cholecystitis I identified the patient and participated in the time-out.: Yes Procedure Operation Date: 02/21/23 10:45 Actual Procedures p Laparoscopic Cholecystectomy(Not Applicable) - Jose Flores DO Surgeon Jose Flores DO Thread Grinder Tool Klaudia Gill PA-C Estimated Blood Loss 10 Findings See Below Acutely inflamed dilated gallbladder Specimens Specimen Description: A: Gallbladder and contents Anesthesia Type General Complications none Disposition Disposition: Recovery Room
--- NOTE | 2023-02-21 14:47 | Operative Report ---
PG Post Operative Report Pre & Post Diagnosis Operation Date: 02/21/23 10:45 Pre-Op Diagnosis: Acute Cholecystitis Post-Op Diagnosis: Acute Cholecystitis I identified the patient and participated in the time-out.: Yes Procedure Operation Date: 02/21/23 10:45 Actual Procedures p Laparoscopic Cholecystectomy(Not Applicable) - Jose Flores DO Surgeon Jose Flores DO Cable Strander Klaudia Gill PA-C Estimated Blood Loss 10 Findings See Below Acutely inflamed dilated gallbladder Fluids see anesthesia record Specimens Gallbladder to pathology Drains None Anesthesia Type General Complications none Disposition Disposition: Recovery Room Indications 77-year-old female with acute cholecystitis Description of Procedure The patient was brought to the operating room and placed in the supine position with both arms extended. At this time she underwent general endotracheal anesthesia without any problems. She was given appropriate pre-operative antibiotics. Her abdomen prepped and draped in the usual sterile fashion. A timeout was called, the procedure was verified as Laparoscopic cholecystectomy, possible open, possible intra-operative cholangiogram. Surgical, nursing and anesthesia teams agreed and the procedure was begun. After injection of 0.25% Marcaine with epinephrine, a supraumbilical vertical incision was made and carried down to the fascia using S-retractors. The abdominal wall was then elevated with towel clamps and abdomen entered using the Veress needle confirming position using the saline drop test. Pneumoperitoneum was established. 5mm trocar was placed. Laparoscope was introduced. No injury from entry into the abdomen was visualized after inspection of the abdomen. Three further ports were placed under direct visualization. One 11mm in the subxiphoid region and two 5mm in the RUQ. At this time the abdomen was inspected and the gallbladder identified. The gallbladder fundus was grasped and retracted cephalad. Omental adhesions were lysed from the gallbladder using blunt and sharp dissection. The gallbladder itself was inflamed and distended consistent with acute cholecystitis. The gallbladder infundibulum was then grasped and retracted laterally. The cystic duct and cystic artery were then identified and skeletonized. The critical view of safety was obtained. They were both then clipped twice proximally and once distally and then divided using scissors. The gallbladder was then taken off of the liver bed using electrocautery and placed in an endocatch bag and removed from the subxiphoid port. The liver bed was then inspected and no bile leak or bleeding was evident. The subxiphoid port was then closed using 0-Vicryl using the suture passer. The trocars were then removed under direct visualization and no bleeding was present. Abdomen was desufflated. The skin was then closed using 4-0 Monocryl in a subcuticular fashion. Surgical glue was applied. Needle and sponge counts were correct x 2. At this time the patient was awoken from anesthesia and extubated having remained stable throughout the entire case. The patient was then transported to PACU in stable condition. The physician payroll assistant was present and scrubbed for the entire case. She was essential in positioning the patient, prepping and draping the patient, driving the laparoscope, retraction and exposure, closure of the incisions and placement of the dressings. I attest to the content of the Intraoperative Record and any orders documented therein. Any exceptions are noted below.
[2023-02-21] MEDS ORDERED: oxyCODONE/ACETAMINOPHEN 5mg/325mg TAB PO PRN ×2 (14:55)
--- NOTE | 2023-02-21 16:58 | Hospitalist Progress Note ---
Date of Service February 21, 2023 Assessment & Plan (1) Acute cholecystitis: Plan: Patient is a 77-year-old female presents to the hospital for evaluation of abdominal pain. Work-up found to be positive for acute cholecystitis. Patient to be admitted to the hospital for surgical consultation and treatment. -Admit to [facility] -CT of abdomen pelvis showing evidence of acute cholecystitis, ultrasound confirms -was given one dose cefoxitin in ER, then started on ceftriaxone and I added Flagyl this AM. Abx now discontinued by Surgery post-op -now s/p lap axel and doing well post op -Consult general surgery appreciated -clear liquids diet and advance as tolerated by Surgery -Pain management with Tylenol (will change to po) for mild pain, 1 mg of morphine for moderate pain, 2 mg of morphine for severe pain, and added oxycodone -Zofran as needed for nausea -Morning CBC, CMP to follow LFTs that were elevated -reduce IVFs to LR at 70 mL/hr and can discontinue tomorrow once taking adequate po (2) Hypertension: Plan: - continue home lisinopril BPs controlled (3) Hyperlipidemia: Plan: - Continue atorvastatin 40mg daily (4) Major depressive disorder: Plan: continue home Lexapro, trazodone (5) GERD (gastroesophageal reflux disease): Plan: continue po PPI Plan Disposition: continued stay [facility] and can likely dc to home tomorrow DVT prophylaxis:SCDs Discussed care with at bedside CODE STATUS: Full code Admission and Anticipated Discharge Date Admission Date: February 21, 2023 Subjective Pt seen after return from [facility] axel and feeling well. No pain, eating clears. Denies any problems Physical Exam Constitutional: WD/WN, vitals as above Respiratory: normal respiratory effort, lungs clear to auscultation Cardiovascular: RRR, no murmur, no edema Gastrointestinal (Abdomen): Inspection/Auscultation: + abdomen abnormal to inspection (dressings in place cdi except umbilical with scant oozing blood) Percussion/Palpation: abdomen soft; abdomen nontender Results & Data Results & Data Vital Signs (Past 12 Hours) Vital Signs Temp Pulse Pulse Pulse Resp BP BP 02/21/23 16:34 36.5 C 73 16 121/76 02/21/23 15:30 75 16 138/72 02/21/23 16:00 36.5 C 74 16 153/84 H 02/21/23 15:36 36.5 C 16 139/89 02/21/23 15:20 36.4 C L 76 18 134/92 02/21/23 15:10 79 16 135/74 02/21/23 15:00 36.1 C L 80 20 128/50 L 02/21/23 10:45 37.2 C 70 18 145/72 H 02/21/23 09:20 69 18 02/21/23 09:10 70 19 02/21/23 09:01 75 24 157/87 H 02/21/23 09:00 75 22 02/21/23 08:50 79 19 02/21/23 08:40 72 17 02/21/23 08:31 70 19 118/65 02/21/23 08:30 71 22 02/21/23 08:20 69 23 02/21/23 08:10 66 18 02/21/23 08:00 74 21 02/21/23 08:00 127/65 02/21/23 07:50 71 19 02/21/23 07:40 64 17 02/21/23 07:30 68 15 02/21/23 07:30 136/70 02/21/23 07:20 64 16 02/21/23 07:10 70 22 02/21/23 07:05 67 18 02/21/23 07:05 152/85 H 02/21/23 06:00 69 17 02/21/23 05:50 67 18 02/21/23 05:40 66 22 02/21/23 05:30 65 18 02/21/23 05:20 71 19 02/21/23 05:10 70 19 02/21/23 05:02 61 17 02/21/23 07:00 36.8 C 73 17 136/70 Pulse Ox O2 Del Method O2 Flow Rate 02/21/23 16:34 95 Room Air 02/21/23 15:30 95 Room Air 02/21/23 16:00 96 Room Air 02/21/23 15:36 97 Room Air 02/21/23 15:20 97 Room Air 02/21/23 15:10 97 Room Air 02/21/23 15:00 96 Oxymask 6 02/21/23 10:45 97 Room Air 02/21/23 09:20 98 02/21/23 09:10 98 02/21/23 09:01 96 02/21/23 09:00 100 02/21/23 08:50 98 02/21/23 08:40 98 02/21/23 08:31 97 02/21/23 08:30 92 02/21/23 08:20 98 02/21/23 08:10 97 02/21/23 08:00 82 L 02/21/23 08:00 02/21/23 07:50 97 02/21/23 07:40 98 02/21/23 07:30 94 02/21/23 07:30 02/21/23 07:20 97 02/21/23 07:10 95 02/21/23 07:05 02/21/23 07:05 02/21/23 06:00 97 02/21/23 05:50 97 02/21/23 05:40 97 02/21/23 05:30 99 02/21/23 05:20 97 02/21/23 05:10 98 02/21/23 05:02 98 02/21/23 07:00 98 Room Air Laboratory Results CBC, CMP reviewed PG Care Time/CCT Total # of Minutes Spent Total Time Spent with Patient: Total time spent is greater than 50% in coordination of care (as documented) at patient's floor/unit and/or counseling patient: Coding Level of Care Code None Diagnoses Acute cholecystitis K81.0 Hypertension I10 Hyperlipidemia E78.5 Major depressive disorder F32.9 GERD (gastroesophageal reflux disease) K21.9
--- NOTE | 2023-02-21 16:58 | Anesthesiology Progress Note ---
Date of Service February 21, 2023 Anesthesia Post Procedure Vital Signs Vital Signs: Temp Pulse Pulse Pulse Resp BP BP 02/21/23 16:34 36.5 C 73 16 121/76 02/21/23 15:30 75 16 138/72 02/21/23 16:00 36.5 C 74 16 153/84 H 02/21/23 15:36 36.5 C 16 139/89 02/21/23 15:20 36.4 C L 76 18 134/92 02/21/23 15:10 79 16 135/74 02/21/23 15:00 36.1 C L 80 20 128/50 L 02/21/23 10:45 37.2 C 70 18 145/72 H 02/21/23 09:20 69 18 02/21/23 09:10 70 19 02/21/23 09:01 75 24 157/87 H 02/21/23 09:00 75 22 02/21/23 08:50 79 19 02/21/23 08:40 72 17 02/21/23 08:31 70 19 118/65 02/21/23 08:30 71 22 02/21/23 08:20 69 23 02/21/23 08:10 66 18 02/21/23 08:00 74 21 02/21/23 08:00 127/65 02/21/23 07:50 71 19 02/21/23 07:40 64 17 02/21/23 07:30 68 15 02/21/23 07:30 136/70 02/21/23 07:20 64 16 02/21/23 07:10 70 22 02/21/23 07:05 67 18 02/21/23 07:05 152/85 H 02/21/23 06:00 69 17 02/21/23 05:50 67 18 02/21/23 05:40 66 22 02/21/23 05:30 65 18 02/21/23 05:20 71 19 02/21/23 05:10 70 19 02/21/23 05:02 61 17 02/21/23 04:30 69 18 02/21/23 04:30 123/61 02/21/23 04:20 63 16 02/21/23 04:10 62 19 02/21/23 04:00 64 12 02/21/23 04:00 137/66 02/21/23 03:50 68 19 08/19/23 03:40 64 18 02/21/23 03:30 73 17 02/21/23 03:30 129/61 02/21/23 03:20 64 20 02/21/23 03:10 65 25 H 02/21/23 03:00 66 20 02/21/23 03:00 144/66 H 02/21/23 02:50 65 19 02/21/23 02:40 61 17 02/21/23 02:30 70 23 02/21/23 02:30 139/63 02/21/23 02:28 64 21 02/21/23 02:28 159/72 H 02/21/23 02:00 65 22 02/21/23 01:50 67 16 02/21/23 07:00 36.8 C 73 17 136/70 02/21/23 04:30 70 18 123/61 02/21/23 04:15 60 02/21/23 00:13 62 02/21/23 03:00 66 18 144/66 H 02/21/23 01:42 02/20/23 21:54 36.4 C L 77 16 166/77 H Pulse Ox O2 Del Method O2 Flow Rate 02/21/23 16:34 95 Room Air 02/21/23 15:30 95 Room Air 02/21/23 16:00 96 Room Air 02/21/23 15:36 97 Room Air 02/21/23 15:20 97 Room Air 02/21/23 15:10 97 Room Air 02/21/23 15:00 96 Oxymask 6 02/21/23 10:45 97 Room Air 02/21/23 09:20 98 02/21/23 09:10 98 02/21/23 09:01 96 02/21/23 09:00 100 02/21/23 08:50 98 02/21/23 08:40 98 02/21/23 08:31 97 02/21/23 08:30 92 02/21/23 08:20 98 02/21/23 08:10 97 02/21/23 08:00 82 L 02/21/23 08:00 02/21/23 07:50 97 02/21/23 07:40 98 02/21/23 07:30 94 02/21/23 07:30 02/21/23 07:20 97 02/21/23 07:10 95 02/21/23 07:05 02/21/23 07:05 02/21/23 06:00 97 02/21/23 05:50 97 02/21/23 05:40 97 02/21/23 05:30 99 02/21/23 05:20 97 02/21/23 05:10 98 02/21/23 05:02 98 02/21/23 04:30 97 02/21/23 04:30 02/21/23 04:20 98 02/21/23 04:10 98 02/21/23 04:00 02/21/23 04:00 02/21/23 03:50 98 02/21/23 03:40 98 02/21/23 03:30 93 02/21/23 03:30 02/21/23 03:20 99 02/21/23 03:10 98 02/21/23 03:00 99 02/21/23 03:00 02/21/23 02:50 97 02/21/23 02:40 98 02/21/23 02:30 99 02/21/23 02:30 02/21/23 02:28 97 02/21/23 02:28 02/21/23 02:00 98 02/21/23 01:50 97 02/21/23 07:00 98 Room Air 02/21/23 04:30 98 Room Air 02/21/23 04:15 02/21/23 00:13 02/21/23 03:00 100 Room Air 02/21/23 01:42 Room Air 02/20/23 21:54 98 Room Air Pain Intensity Abdomen: Pain Intensity: 5 Transfer of Care Handoff Completed per policy Notes Mental Status: alert / awake / arousable and participated in evaluation Patient Amnestic to Procedure: Yes Nausea / Vomiting: adequately controlled Pain: adequately controlled Airway Patency, RR, SpO2: stable & adequate BP & HR: stable & adequate Hydration State: stable & adequate Anesthetic Complications: no major complications apparent and Pt Satisfied with anesthetic care
[2023-02-21] MEDS ORDERED: ACETAMINOPHEN 325 MG TAB PO PRN (17:03)
[2023-02-21] MEDS ORDERED: ceFAZolin 2000MG 2,000 MG/15 ML SYR IV SCH (21:00)
[2023-02-22] MEDS: LACTATED RINGER'S 1,000 ML IV SCH (01:09)
--- NOTE | 2023-02-22 03:20 | Billing Data ---
Date of Service February 22, 2023 Coding Level of Care Code 36065 INT INP/OBS CARE
[2023-02-22 07:01] LABS: Albumin Level 3.5 gm/dl (3.4-5.0); BUN Creatinine Ratio 36.1 (10-20); Bilirubin Direct 0.1 mg/dl (0-0.2); Bilirubin,Total 0.7 mg/dl (0.2-1.0); Calcium 8.6 mg/dl (8.6-10.3); Creatinine Clr Calc Pharmacy 129.2 ml/min; Est GFR (African American) 121.4 ml/min; Est GFR (Non-African American) 104.7 ml/min; Magnesium 1.8 mg/dl (1.7-2.4); Potassium 3.7 mmol/L (3.5-5.1); Total Protein 6.1 gm/dl (6.0-8.3)
[2023-02-22 07:06] LABS: Basophils # (auto) 0.01 K/uL (0-0.2); Basophils % (auto) 0.1 %; Hematocrit (blood only) 30.9 % (37.0-47.0); Hemoglobin 10.2 g/dl (12.0-16.0); Immature Granulocytes # (auto) 0.02 K/uL (0.01-0.20); Immature Granulocytes % (auto) 0.3 %; Lymphocytes # (auto) 1.07 K/uL (1.2-3.4); Lymphocytes % (auto) 14.2 %; Mean Corpuscular Hemoglobin 30.9 pg (25.0-34.0); Mean Corpuscular Volume 93.6 fL (80.0-100.0); Monocytes % (auto) 6.6 %; Neutrophils # (auto) 5.94 K/uL (1.40-6.50); Neutrophils % (auto) 78.8 %; Platelet Count 189 K/uL (130-400); RDW Coefficient of Variation 12.9 % (11.5-14.5); RDW Standard Deviation 44.5 fL (36.4-46.3); White Blood Count 7.54 K/ul (4.8-10.8)
[2023-02-22] MEDS: ESCITALOPRAM OXALATE 10 MG TAB PO SCH (08:06)
[2023-02-22] MEDS: lisinopril 20 MG TAB PO SCH (08:06)
[2023-02-22] MEDS ORDERED: ATORVASTATIN 40 MG TAB PO SCH (09:00)
[2023-02-22] MEDS ORDERED: PANTOprazole 40 MG TAB PO SCH (09:00)
--- NOTE | 2023-02-22 09:50 | Surgery Progress Note ---
Date of Service February 22, 2023 Assessment & Plan (1) Acute cholecystitis: Plan: POD#1 lap axel WBC 7, Tb 0.7, AST 63, Alt 83, alkp 118 Some expected post op soreness, but overall doing well may advance diet as tolerates stable for home later today after lunch if cleared by medicine f/u in office with dr. ybarra in 2 weeks Admission and Anticipated Discharge Date Admission Date: February 21, 2023 Subjective Patient reports feeling a bit sore, but overall her pain is much better than yesterday. She is tolerating clears without n/v. Hungry for more food. + bm Physical Exam Physical Exam: awake/alert, no distress Gastrointestinal (Abdomen): Inspection/Auscultation: + abdominal surgical incision (c/d/i ); abdomen not distended Percussion/Palpation: + abdomen tender (mild expected ttp hugo incisionally ) and abdomen soft Results & Data Vital Signs (Past 12 Hours) Vital Signs Temp Pulse Resp BP Pulse Ox O2 Del Method 02/22/23 07:41 36.8 C 82 16 119/72 96 Room Air 02/22/23 03:43 36.7 C 72 18 118/70 94 Room Air 02/21/23 23:18 36.7 C 88 18 128/80 95 Room Air PG Care Time/CCT Total # of Minutes Spent Total Time Spent with Patient: Total time spent is greater than 50% in coordination of care (as documented) at patient's floor/unit and/or counseling patient: Coding Level of Care Code 09768 Post Operative Follow-Up Diagnoses Acute cholecystitis K81.0
--- NOTE | 2023-02-22 12:52 | Discharge Summary ---
Discharge Summary Date of Service February 22, 2023 Notes For Next Care Provider Please CMP in 1 week to ensure LFTs have returned completely to normal Medication Changes From Visit None Admission HPI Per Admitting Provider Patient is a 77-year-old female presents to the hospital for evaluation of abdominal pain. Patient reports that began late afternoon on 02/20/2023. Patient and her state that they were at the [facility] and had food that was brought from home at approximately 1 PM and a few hours later the patient was experiencing right upper quadrant pain with associated nausea, vomiting, and shortness of breath. For this reason, she was brought to the emergency department by her . She had noted similar symptoms earlier in the week but it was short-lived and seem to have resolved within 1/2-hour or so. Pain was initially an 8 out of 10 in the right upper quadrant but seems to have improved since being in the emergency department. She is having dry heaving currently without active vomiting. No urinary symptoms. Denies hematemesis, melena, hematochezia. Her last bowel movement was in the afternoon on 02/20 which did not improve her symptoms. Patient notes that she did have her appendix removed many years ago. Otherwise no other complaints at this time. ED course: Patient brought back and evaluated by one of the providers. Otherwise no other complaints at this time. Lab work is significant for a mild anemia with a hemoglobin of 11.5, BUN of 28, mildly elevated AST and ALT at 76 and 55 respectively, and a urinalysis not indicative of urinary tract infection. CT of the abdomen and pelvis shows inflammatory stranding surrounding and a distended gallbladder indicative of acute cholecystitis. Patient was given cefoxitin and Zofran in the ED. The hospitalist service was then consulted for admission and treatment. Principal Dx & Hospital Course #1 = Principal Diagnosis (1) Acute cholecystitis: Patient is a 77-year-old female presents to the hospital for evaluation of abdominal pain. Work-up found to be positive for acute cholecystitis. Patient to be admitted to the hospital for surgical consultation and treatment. -Admitted to [facility] -CT of abdomen pelvis showing evidence of acute cholecystitis, ultrasound co nfirms -was given one dose cefoxitin in ER, then started on ceftriaxone and added Flagyl. Abx discontinued by Surgery post-op -now s/p lap axel and doing well post op -Consult general surgery appreciated -tolerating reg diet prior to discharge, moving bowels, pain controlled -LFs remain slightly elevated at time of discharge. Recommend repeating CMP in 1 week as outpt with PCP to ensure they return to normal. no CBD stones visualized on imaging and TBili normal (2) Hypertension: Plan: - continue home lisinopril BPs controlled (3) Hyperlipidemia: Plan: - Continue atorvastatin 40mg daily (4) Major depressive disorder: Plan: continue home Lexapro, trazodone (5) GERD (gastroesophageal reflux disease): Plan: continue po PPI Plan Disposition: dc to home today DVT prophylaxis:SCDs Discussed care with at bedside CODE STATUS: Full code (2) Hypertension: (3) Hyperlipidemia: (4) Major depressive disorder: (5) GERD (gastroesophageal reflux disease): Discharge Exam Constitutional WD/WN, vitals as above Respiratory normal respiratory effort, lungs clear to auscultation Cardiovascular RRR, no murmur, no edema Gastrointestinal (Abdomen) Percussion/Palpation: abdomen soft; abdomen nontender Updated Medication List Medication Instructions Recorded Confirmed Type naproxen sodium 550 mg tablet 550 mg PO DAILY PRN Pain 03/27/19 02/21/23 History omeprazole 20 mg capsule,delayed 20 mg PO DAILY 03/27/19 02/21/23 History release lisinopril 20 mg tablet 20 mg PO DAILY 07/09/20 02/21/23 History escitalopram oxalate 10 mg tablet 10 mg PO DAILY 04/30/21 02/21/23 History (Lexapro) conjugated estrogens 0.625 mg/gram 0.625 mg vaginal 2XWK #30 grams 10/15/22 02/21/23 Rx vaginal cream atorvastatin 40 mg tablet 40 mg PO DAILY 02/21/23 02/21/23 History trazodone 50 mg tablet 25 mg PO HS 02/21/23 02/21/23 History Hospital Stay Data Consultations 02/21/23 05:11 ED Decision to Admit Stat 02/21/23 09:06 Consult General Surgery Routine Procedures Performed Operation Date: 02/21/23 10:45 Actual Procedures p Laparoscopic Cholecystectomy(Not Applicable) - Jose Flores, Diagnostic Imagining Performed 02/21/23 00:40 CT Abd and Pelvis [CT abd pelvis wo con] Stat 02/21/23 03:58 US gallbladder Stat Pending Results Patient Have Any Pending Studies at Discharge: Yes Discharge Instructions Given to Patient (Per Discharging Provider) You were admitted with a gallbladder infection and had your gallbladder removed. Please have your PCP check your liver blood tests in 1 week to ensure they have returned to normal as would be expected. You may purchase Tylenol over the counter if needed for additional pain control over the next few days. Take per manufacturers instructions You may remove your outer surgical dressings on 02/23/23. You will have small white bandages on underneath that are over your incisions. You may shower with these on. They will tend to fall off on their own within 7-10 days. Total Time Total Time Spent Total Time Spent (In Minutes): 35 min Coding Level of Care Code 07328 INP/OBS DISCH >30 MIN Diagnoses Acute cholecystitis K81.0 Hypertension I10 Hyperlipidemia E78.5 Major depressive disorder F32.9 GERD (gastroesophageal reflux disease) K21.9
--- NOTE | 2023-02-23 08:59 | Electrocardiogram Report ---
Test Reason : Blood Pressure : / mmHG Vent. Rate : 065 BPM Atrial Rate : 065 BPM P-R Int : 152 ms QRS Dur : 070 ms QT Int : 410 ms P-R-T Axes : 026 018 048 degrees QTc Int : 426 ms Normal sinus rhythm Cannot rule out Anterior infarct (cited on or before 24-JAN-2007) Abnormal ECG When compared with ECG of 24-JAN-2007 04:55, No significant change was found Confirmed by Vivek Shukla ([id number]) on 02/23/2023 8:58:58 AM Referred By: REFERRED SELF Confirmed By:Vivek Shukla
== END 2023-02-22 13:35 | disposition home or self-care (01) | DRG 419 ==
LOC: ED 21:52 → SUATTDRO 02-21 05:58 → INTOOBSV 02-21 05:58 → EDINP 02-21 05:58 → 3E 02-21 09:06